=== PATIENT | female | born 1950 | race Caucasian/White ===

== ENCOUNTER 2024-09-08 01:07 | Emergency (ER) | payer MEDICARE, SELFPAY ==
[2024-09-08 01:53] VITALS: BP 124/68; PULSE 80; RESP 18; TEMP 38.2; O2SAT 97; BMI 40.3
--- NOTE | 2024-09-08 02:07 | EKG_ITS ---
[facility] Test Date: 2024-09-08 Pat Name: LONNIE GARZA Department: Room: - Gender: Female Professional Builder: : 1950 Requested By: Maikel Eaton ([facility]) Order Number: [id number] Reading MD: Maikel Eaton ([facility]) Measurements Intervals [place] Rate: 69 P: 38 RI: 199 QRS: -30 QRSD: 110 T: -1 QT: 376 QTc: 405 Interpretive Statements SINUS RHYTHM WITH OCCASIONAL SUPRAVENTRICULAR PREMATURE COMPLEXES BORDERLINE LEFT AXIS DEVIATION [QRS AXIS < -20] LOW QRS VOLTAGE IN PRECORDIAL LEADS [QRS DEFLECTION < 1.0 mV IN CHEST LEADS] PATTERN CONSISTENT WITH PULMONARY DISEASE No previous ECG available for comparison /store/S0/[id number]/ecg/[id number].pdf
--- NOTE | 2024-09-08 02:07 | XR_ITS ---
Examination: CT brain head without contrast. 2-D sagittal coronal reconstructions Date and time of exam:September 08, 2024 0231 hrs. Indications: Patient fell 2 hours ago with injury to the head, head pain CTDI: vol (mGy):49.30 DLP: (mGycm):1009 Technique: Multiple CT axial sections of the brain have been obtained, 5 mm slice thickness. Contrast has not been administered. 2-D sagittal, coronal reconstructions have been obtained Low dose protocols were performed. One or more of the following dose reduction techniques were used; automated exposure control, adjustment of the mA and/or KV according to patient size, use of iterative reconstruction technique. Findings: No significant ventricular enlargement. Intra-axial or extra-axial hemorrhage density is not seen. No mass effect or midline shift Basal cisterns are not remarkable. Fourth ventricle is midline. Posterior craniotomy defects Impression: Negative for acute hemorrhage, mass effect or midline shift
--- NOTE | 2024-09-08 02:07 | XR_ITS ---
Examination: CT cervical spine without contrast 2-D sagittal reconstructions 2-D coronal reconstructions 3-D reconstructions. Exam date and time:September 08, 2024 at 0233 hrs. Comparison January 05, 2018 Indications: Patient fell 2 hours ago with injury to the neck, neck pain CTDI:vol (mGy) 13.96 DLP: (mGycm) 346 Technique: Multiple 2 mm axial sections of the cervical spine have been obtained. The coronal and sagittal reconstructions have been obtained. 3-D reconstructions have been obtained. Low dose protocols were performed. One or more of the following dose reduction techniques were used; automated exposure control, adjustment of the mA and/or KV according to patient size, use of iterative reconstruction technique. Findings: Axial sections demonstrate intact base of the skull. C1 exhibit satisfactory relationship to the odontoid. No acute cervical vertebral body fracture seen. Alignment posterior spinous processes satisfactory. Impression: No acute cervical fracture.
--- NOTE | 2024-09-08 02:07 | XR_ITS ---
Examination: AP lateral chest 2 views Technique: Sitting AP lateral chest 2 views Exam date and time: September 08, 2024 0225 hrs. Indications: Onset chest pain today Findings: This film does not include the upper lungs Mild prominence left ventricle Mild vascular congestion No lobar pneumonia or pulmonary edema Kyphosis dorsal spine with prominent osteopenia Impression: Limited study with no pneumonia or pulmonary edema, no pneumothorax
--- NOTE | 2024-09-08 02:08 | PD.EDRME ---
Rapid Medical Screening Exam RME Arrival date/time: 09/08/24 01:07 73-year-old female presents emergency department complaining of generalized pain after suffering fall while attempting to get up from the toilet. Patient reports did hit her head and is complaining of neck pain. Chief Complaint: Back Pain/Injury Time Seen by Provider: 09/08/24 01:12 Vital signs: Vital Signs Temperature 100.7 F H 09/08/24 01:53 Pulse Rate 80 09/08/24 01:53 Respiratory Rate 18 09/08/24 01:53 Blood Pressure 124/68 09/08/24 01:53 Pulse Oximetry (%) 97 09/08/24 01:53 Oxygen Delivery Method Room Air 09/08/24 01:53 Vital signs reviewed by provider: Yes
[2024-09-08] MEDS: ACETAMINOPHEN 500 MG TABLET 1000 MG PO (03:04)
[2024-09-08 03:32] LABS: Basophils % (Auto) 1 % (0-2.5); Eosinophils % (Auto) 1 % (0-10); Hematocrit 36.7 % (36.0-46.0); Hemoglobin 12.4 g/dL (12.0-16.0); Immature Granulocytes % (Auto) 0 % (0-0); Immature Granulocytes Auto 0.01 Thou/mm3 (0.00-0.00); Lymphocytes % (Auto) 14 % (10-50); Mean Corpuscular HGB Conc 33.8 g/dl (31.0-37.0); Mean Corpuscular Hemoglobin 31.6 pg (25.0-35.0); Mean Corpuscular Volume 93 fL (80-100); Monocytes # (Auto) 0.5 Thou/mm3 (0.0-0.8); Monocytes % (Auto) 7 % (0-12); Neutrophils # (Auto) 5.4 Thou/mm3 (1.8-7.7); Neutrophils % (Auto) 78 % (37-80); Nucleated Red Blood Cell % 0 /100 WBC (0); Platelet Count 157 Thou/mm3 (140-440); RDW Standard Deviation 49.1 fL (36.4-46.3); Red Blood Count 3.93 Miln/mm3 (4.00-5.20)
--- NOTE | 2024-09-08 03:46 | PRELIM_ITS ---
CT scan of the head without intravenous contrast (axial sections with sagittal and coronal reformats) September 08, 2024 0231 hoursClinical History: FallCompared with the prior study dated January 05, 2018 .Findings:There is no evidence of intracranial hemorrhage, mass effect or midline shift. There are b ilateral parietal craniotomy with underlying encephalomalacic changes. A prominent cisterna magna is incidentally noted. There are periventricular white matter hypodensities, compatible with chronic sma ll vessel ischemia. There is mild volume loss. There is mild mucosal thickening in bilateral maxillar y sinuses. The mastoid air cells and other visualized paranasal sinuses are clear.Impression:No evide nce of intracranial hemorrhage, midline shift or calvarial fracture. Other findings as described william ford. Report Electronically Signed By: Mark Solis 09/08/2024 3:46:11 AM [EST]
[2024-09-08 03:47] LABS: Partial Thromboplastin Time 28.2 Seconds (22.0-36.0); Prothrombin Time 11.4 Seconds (9.0-12.2)
[2024-09-08 03:49] LABS: B-Type Natriuretic Peptide 216 pg/mL (0-100)
[2024-09-08 03:50] LABS: Alanine Aminotransferase 62 U/L (10-49); Albumin, Serum 4.3 gm/dL (3.4-4.8); Albumin/Globulin Ratio 1.2 (1.2-2.2); Alkaline Phosphatase 303 U/L (46-116); Anion Gap 5 (7-16); Aspartate Amino Transferase 67 U/L (0-34); BUN/Creatinine Ratio 18 Ratio (12-20); Bilirubin,Total 0.5 mg/dL (0.3-1.2); Blood Urea Nitrogen 16 mg/dL (9-23); Calcium 9.6 mg/dL (8.3-10.6); Calcium (Corrected) 9.6 mg/dL (8.5-10.1); Chloride 100 mMol/L (98-107); Creatinine (Component) 0.9 mg/dL (0.6-1.3); Estimated Creatinine Clearance 70.1 mL/min (>60); Globulin 3.5 gm/dL (2.3-3.5); Glucose 115 mg/dL (74-106); Magnesium 2.1 mg/dL (1.6-2.6); Osmolality,Calculated 268 (275-295); Potassium 4.7 mMol/L (3.4-5.1); Sodium 133 mMol/L (136-145); Total Protein 7.8 gm/dL (5.7-8.2); Troponin I < 0.020 ng/mL (0.0-0.045); eGFR > 60 See Note
--- NOTE | 2024-09-08 04:10 | PRELIM_ITS ---
CT scan of the cervical spine without intravenous contrast (axial sections with sagittal and coronal reformats) September 08, 2024 0233 hours Clinical History: Fall Comparison: No prior study is availabl e for comparison. Findings:The bones are osteopenic. There is no fracture or traumatic subluxation. D egenerative changes are noted in the form of multilevel marginal osteophytes, decreased disc spaces a nd facet arthropathy. There are nodules in the right lobe of the thyroid.Impression:No evidence of fr acture or traumatic subluxation.Degenerative changes as described above. Report Electronically Breann d By: Mark Solis 09/08/2024 4:09:57 AM [EST]
[2024-09-08 05:52] VITALS: BP 112/58; PULSE 60; RESP 16; TEMP 37.7; O2SAT 95
[2024-09-08 05:56] LABS: Collection Type, Urine Clean Catch
[2024-09-08 06:16] LABS: Bacteria,Urine 4+; Bilirubin,Urine Negative (Negative); Blood,Urine Negative (Negative); Budding Yeast,Urine Present; Clarity,Urine Turbid (Clear/Hazy); Color,Urine Yellow (Lt Yel-Yel); Glucose, Urine Negative (Negative); Ketones,Urine Negative (Negative); Leukocyte Esterase,Urine Positive (Negative); Nitrite,Urine Positive (Negative); Protein,Urine Negative (Neg - Trace); RBC,Urine 1 /hpf (0-3); Specific Gravity,Urine 1.014 (1.001-1.035); Squamous Epithelial Cell,Urine 1 /hpf (0-5); Urobilinogen,Urine Negative mg/dL (0.0-1.0); WBC,Urine 60 /hpf (0-5)
[2024-09-08 06:23] LABS: Culture Indicated,Urine Yes
--- NOTE | 2024-09-08 06:31 | XR_ITS ---
Examination: Lumbar spine 3 views Technique one AP lateral coned lateral lower lumbar spine 3 views Exam date and time: September 08, 2024 0702 hours INDICATIONS: Ground-level fall today with injury to the lower back, lower back pain. FINDINGS: Severe osteopenia No acute lumbar fracture Mild diffuse lumbar disc narrowing IMPRESSION: No acute lumbar fracture
--- NOTE | 2024-09-08 06:39 | EDNOTE_ITS ---
ED Back Injury Pain RME/HPI General Chief Complaint: Back Pain/Injury Stated Complaint: BACK PAIN Time Seen by Provider: 09/08/24 01:12 Arrival date/time: 09/08/24 01:07 RME / HPI RME / HPI Narrative: 09/08/24 01:07 73-year-old female presents emergency department complaining of generalized pain after suffering fall while attempting to get up from the toilet. Patient reports did hit her head and is complaining of neck pain. DR. ALICEA MAIN ED EVALUATION 73 year old female with history of chronic knee and back pain presents to the ED BIBA from home for complaint of back pain after ground level fall today. Patient reports her knees give out frequently. This morning while getting up off the toilet states her knees gave out and fell on the side of the toilet onto her right hip causing mid back pain. States the pain in her mid back is chronic however exacerbated today. Reports blunt trauma to her back, no head injury. No other injuries or complaints reported. Related Data Home Medications ?Medication ?Instructions ?Recorded ?Confirmed biotin 10,000 mcg capsule (Julien 10,000 mcg PO DAILY 01/05/18 01/05/18 Biotin) calcium carbonate (Calcium 600) 600 mg PO DAILY 01/05/18 01/05/18 cyanocobalamin (B12)-cobamamide 100 mcg DAILY 01/05/18 01/05/18 5,000 mcg-100 mcg sublingual tablet (B-12 Plus) diazepam 10 mg tablet (Valium) 10 mg TID 01/05/18 01/05/18 diphenhydramine HCl 25 mg tablet 25 mg PO Q4H PRN Cough 01/05/18 01/05/18 gabapentin 400 mg capsule 400 mg PO TID 01/05/18 01/05/18 levothyroxine 88 mcg tablet 88 mcg PO QDAY 01/05/18 01/05/18 naproxen 500 mg tablet (Naprosyn) 500 mg PO BID 01/05/18 01/05/18 omega 9-fpy-rcg-fish oil 1,000 mg 600 mg DAILY 01/05/18 01/05/18 (120 mg-180 mg) capsule (Fish Oil) oxycodone-acetaminophen 10 mg-325 10 mg PO [id number] PRN Pain, Moderate 01/05/18 01/05/18 mg tablet (Percocet) ranitidine HCl 150 mg tablet 150 mg PO QPM 01/05/18 01/05/18 sertraline 100 mg tablet 100 mg PO QDAY 01/05/18 01/05/18 terbutaline 5 mg tablet 5 mg PO TID 01/05/18 01/05/18 Previous Rx's ?Medication ?Instructions ?Recorded levofloxacin 500 mg tablet 500 mg PO QDAY #7 tabs 09/08/24 Allergies Allergy/AdvReac Type Severity Reaction Status Date / Time bee venom protein (honey bee) Allergy Verified 01/05/18 11:54 [place] And Derivatives Allergy Verified 01/05/18 11:54 cortisone Allergy Verified 01/05/18 11:52 dexamethasone [From Decadron] Allergy Verified 01/05/18 11:52 erythromycin base Allergy Verified 01/05/18 11:54 hydrocodone [From Vicodin] Allergy Verified 01/05/18 11:52 morphine Allergy Verified 01/05/18 11:54 NSAIDS (Non-Steroidal Allergy Verified 01/05/18 11:52 Anti-Inflamma peas Allergy Verified 01/05/18 11:54 Penicillins Allergy Verified 01/05/18 11:52 Pork/Porcine Containing Allergy Verified 01/05/18 11:54 Products Sulfa (Sulfonamide Allergy Verified 01/05/18 11:54 Antibiotics) tetanus toxoid, adsorbed Allergy Verified 01/05/18 11:54 Review of Systems Review of Systems Narrative Review of Systems: Gen: No fever, no chills, no weight loss EYES: No discharge, no visual changes, no pain HEENT: No ear pain, no congestion, no sore throat PULM: no shortness of breath, no cough, no congestion CV: No chest pain, no dyspnea on exertion, no palpitations, no chest tightness GI: No nausea, no vomiting, no diarrhea, no pain, no constipation : No frequency, no urgency,? no dysuria Musc/skel: No joint pain, + back pain Skin: No rash, no ecchymosis, no lesions Psyc: No hallucinations, no depression Heme/Lymph: No easy bleeding or bruising tendencies Neuro: No weakness, no headache Past Medical History Past Medical History CARDIAC: Positive Cardiac Disorders and Edema RESPIRATORY: Positive Asthma REPRODUCTIVE: Positive Previous Pregnancies MUSCULOSKELETAL: Positive Carpal Tunnel Syndrome (BILAT) ENDOCRINE: Positive Hypothyroidism HEMATOLOGIC: Positive Clotting Problems (DVT RT LEG, PE AND RT VENTRICLE) PSYCHO/SOCIAL: Positive Depression and Anxiety Surgical History SURGICAL: Positive Endocrine Surgery, Thyroidectomy, Abdominal Surgery, Gastric Bypass Surgery, Neurologic Surgery (BRAIN TUMOR), Hysterectomy (AND OOPHERECTOMY) and Section (X2) OTHER SURGICAL HX: gastirc by pass Social History SMOKING STATUS: Never smoker ED Exam Narrative Physical exam: GENERAL APPEARANCE: AxOx4, mild distress, nontoxic appearing HEENT: NC, AT. MMM. EOMI, clear conjunctiva, oropharynx clear. NECK: Supple without lymphadenopathy. No stiffness or restricted ROM. HEART: Normal rate and regular rhythm, normal S1/S1, no m/r/g LUNGS: CTAB, moving air well. No crackles or wheezes are heard. ABDOMEN: Soft, nontender, nondistended with good bowel sounds heard. BACK: No midline C/T/L spine pain or deformity, No CVAT, no obvious deformity. EXTREMITIES: Bilateral lower extremities with significant lymphadema. Without cyanosis or clubbing. MUSCULOSKELETAL: Mild paraspinal tenderness to the L3-L4 area. FROM of all major joints, no chest tenderness NEUROLOGICAL: Grossly nonfocal. Alert and oriented, moving all 4 extremities. CN not formally tested but appear grossly intact. Skin: Warm and dry without any rash. Course Quality Measures none Orders Category Date Time Status Bedside COVID-19 Antigen Test NOW Care 09/08/24 02:09 Active Bedside Influenza A&B Antigen Test NOW Care 09/08/24 02:09 Completed EKG (ED ONLY) *Do not use* NOW Care 09/08/24 02:[address] cervical spine wo con Stat Exams 09/08/24 02:[address] head/brain wo con Stat Exams 09/08/24 02:07 Completed EKG (ED Only) Stat Exams 09/08/24 02:07 Ordered XR chest 2V Stat Exams 09/08/24 02:07 Completed XR lumbar spine 2-3V Stat Exams 09/08/24 06:31 Completed B-Type Natriuretic Peptide Stat Lab 09/08/24 03:08 Completed CBC Stat Lab 09/08/24 03:08 Completed Comprehensive Metabolic Panel Stat Lab 09/08/24 03:08 Completed Drug Screen,Urine Stat Lab 09/08/24 05:30 Completed Magnesium Stat Lab 09/08/24 03:08 Completed Partial Thromboplastin Time Stat Lab 09/08/24 03:08 Completed Prothrombin Time with INR Stat Lab 09/08/24 03:08 Completed Troponin I Stat Lab 09/08/24 03:08 Completed Urinalysis, C/S if Indicated Stat Lab 09/08/24 05:30 Completed Urine Culture Stat Lab 09/08/24 05:30 Received Acetaminophen Tab [Tylenol ES Tab] Med 09/08/24 02:09 Discontinued 1,000 mg PO X1 ONE oxyCODONE/APAP 5/325 [Percocet 5/325] Med 09/08/24 06:31 Discontinued 2 tab PO X1 ONE Reevaluation(s) Reevaluation #1: Patient remains clinically stable throughout the emergency department visit. We reviewed all the results, analysis, and treatment plans. Patient is amenable to discharge. Antibiotic was switched from Macrobid to Levaquin. Strict return precautions were outlined. Patient was discharged in stable condition. Time: 09:20 Vital Signs Vital signs: Vital Signs Temperature 100.7 F H 09/08/24 01:53 Pulse Rate 80 09/08/24 01:53 Respiratory Rate 18 09/08/24 01:53 Blood Pressure 124/68 09/08/24 01:53 Pulse Oximetry (%) 97 09/08/24 01:53 Oxygen Delivery Method Room Air 09/08/24 01:53 Pulse ox is 97% on room air which is adequate. Back Pain / Injury MDM Narrative MDM Narrative:: Reena Coronado am scribing for and in the presence of Dr. Alicea. Patient data External records reviewed:: [facility] previous records (I reviewed ED visit on 01/05/2018 ) and EMS form Clinical information provided by:: patient and EMS Social determinants that could affect healthcare access:: none Patient has the following chronic illnesses:: Chronic pain How is presenting disease/condition affected by chronic disease/condition?: exacerbated by Evaluation data The following diagnostics were reviewed and interpreted by me:: lab results, radiology exam(s) and EKG tracing(s) Lab and/or radiology exams considered but not ordered:: None Interpretation Summary: Ordering Physician: Date of Service: Procedure(s): Accession Number(s): cc: ~ CT scan of the head without intravenous contrast (axial sections with sagittal and coronal reformats) September 08, 2024 0231 hours Clinical History: Fall Compared with the prior study dated January 05, 2018. Findings: There is no evidence of intracranial hemorrhage, mass effect or midline shift. There are bilateral parietal craniotomy with underlying encephalomalacic changes. A prominent cisterna magna is incidentally noted. There are periventricular white matter hypodensities, compatible with chronic small vessel ischemia. There is mild volume loss. There is mild mucosal thickening in bilateral maxillary sinuses. The mastoid air cells and other visualized paranasal sinuses are clear. Impression: No evidence of intracranial hemorrhage, midline shift or calvarial fracture. Other findings as described above. Report Electronically Signed By: Mark Solis 09/08/2024 3:46:11 AM [EST] Ordering Physician: Date of Service: Procedure(s): Accession Number(s): cc: ~ CT scan of the cervical spine without intravenous contrast (axial sections with sagittal and coronal reformats) September 08, 2024 0233 hours Clinical History: Fall Comparison: No prior study is available for comparison. Findings: The bones are osteopenic. There is no fracture or traumatic subluxation. Degenerative changes are noted in the form of multilevel marginal osteophytes, decreased disc spaces and facet arthropathy. There are nodules in the right lobe of the thyroid. Impression: No evidence of fracture or traumatic subluxation. Degenerative changes as described above. Report Electronically Signed By: Mark Solis 09/08/2024 4:09:57 AM [EST] Ordering Physician: Karon MARCOS)Maikel Date of Service: 09/08/24 Procedure(s): XR chest 2V Accession Number(s): [id number] cc: Pablo Jerome MD; Fabian Trinidad MD; Karon EspinosaFIBERGLASS ROVING WINDER)Maikel~ Examination: AP lateral chest 2 views Technique: Sitting AP lateral chest 2 views Exam date and time: September 08, 2024 0225 hrs. Indications: Onset chest pain today Findings: This film does not include the upper lungs Mild prominence left ventricle Mild vascular congestion No lobar pneumonia or pulmonary edema Kyphosis dorsal spine with prominent osteopenia Impression: Limited study with no pneumonia or pulmonary edema, no pneumothorax Dictated By:Fabian Trinidad MD Signed By:<Electronically signed by Fabian Trinidad MD in OV> 09/08/24 0734 Ordering Physician: Dontae Alicea MD Date of Service: 09/08/24 Procedure(s): XR lumbar spine 2-3V Accession Number(s): [id number] cc: Pablo Jerome MD; Dontae Alicea MD; Fabian Trinidad MD~ Examination: Lumbar spine 3 views Technique one AP lateral coned lateral lower lumbar spine 3 views Exam date and time: September 08, 2024 0702 hours INDICATIONS: Ground-level fall today with injury to the lower back, lower back pain. FINDINGS: Severe osteopenia No acute lumbar fracture Mild diffuse lumbar disc narrowing IMPRESSION: No acute lumbar fracture Dictated By:Fabian Trinidad MD Signed By:<Electronically signed by Fabian Trinidad MD in [place]>09/08/24 0900 Medications / Prescriptions Medications or Prescriptions considered but not ordered:: None Medication administrations:: Medication Administration History Discontinued Medications Acetaminophen (Acetaminophen 500 Mg Tablet) 1,000 mg PO X1 ONE Stop: 09/08/24 02:10 Last Admin: 09/08/24 03:04 Dose: 1,000 mg Documented By: MORA Comments: PT STATES PAIN IS 10. PT IS RELAXED ON PHONE PLAYING GAMES Oxycodone/Acetaminophen (Oxycodone/Apap 5/325 Tablet) 2 tab PO X1 ONE Stop: 09/08/24 06:32 Last Admin: 09/08/24 06:45 Dose: 2 tab Documented By: DB See above Consultations Consultation(s) initiated? (list below): No Diagnosis Most likely diagnosis given after review of the tests above:: Strain of lumbar region Acute UTI Admission Indicated Admission indicated?: not indicated Admission Request Was there a request for admission?: No Disposition Plan Disposition Plan: Discharge Discharge Attestation Discharge Attestation: The patient and all family members were given an opportunity to ask questions and understood the discharge instructions. Discharge instructions specifically effects, indications for sooner follow up or return to the emergency department, and the expected course of current diagnosis. Patient condition: Stable Discharge Plan Plan Patient Disposition: HOME (Self Care) Prescriptions/Referrals Prescriptions/Med Rec: New levofloxacin 500 mg tablet 500 mg PO QDAY Qty: 7 0RF No Action gabapentin 400 mg Capsule 400 mg PO TID sertraline 100 mg Tablet 100 mg PO QDAY levothyroxine 88 mcg Tablet 88 mcg PO QDAY oxycodone-acetaminophen [Percocet] 10-325 mg Tablet 10 mg PO [id number] PRN (Reason: Pain, Moderate) terbutaline 5 mg Tablet 5 mg PO TID ranitidine HCl 150 mg Tablet 150 mg PO QPM diazepam [Valium] 10 mg Tablet 10 mg TID naproxen [Naprosyn] 500 mg Tablet 500 mg PO BID omega 8-bij-jdf-fish oil [Fish Oil] 1,000 mg (120 mg-180 mg) Capsule 600 mg DAILY calcium carbonate [Calcium 600] 600 mg calcium (1,500 mg) Tablet 600 mg PO DAILY biotin [Julien Biotin] 10,000 mcg Capsule 10,000 mcg PO DAILY diphenhydramine HCl 25 mg Tablet 25 mg PO Q4H PRN (Reason: Cough) cyanocobalamin-cobamamide [B-12 Plus] 5,000-100 mcg Tablet, Sublingual 100 mcg DAILY Referrals: Pablo Jerome MD [Primary Care Provider] - In 1 week Problem List Clinical Impression: Strain of lumbar region, Acute UTI Patient/Caregiver Discharge Instructions Education Materials: ED CYSTITIS Female Adult Additional Instructions: You can stop your current antibiotic. A new antibiotic has been sent to the pharmacy for you. You can continue with your normal home pain medication regimen. Follow-up with your primary care doctor in 2 to 3 days for recheck. You can return to the emergency department sooner if symptoms worsen or if you notice any new, concerning issues. Print Language: Divehi Stand Alone Forms: Rosette Award Info., Patient Portal Info Letter
[2024-09-08] MEDS: oxyCODONE/APAP 5/325 TABLET 2 TAB PO (06:45)
[2024-09-08 07:21] LABS: Amphetamine/Methamp Scrn,U Negative (Negative); Barbiturate Screen,Urine Negative (Negative); Benzodiazepines Screen,Urine Positive (Negative); Benzoylecgonine Screen, Ur Negative (Negative); Fentanyl Screen,Urine Negative (Negative); Opiate Screen,Urine Negative (Negative); THC Screen,Urine Negative (Negative)
[2024-09-08 07:45] VITALS: BP 108/44; PULSE 68; RESP 18; TEMP 37.1; O2SAT 95
[2024-09-08 10:35] VITALS: BP 110/48; PULSE 61; RESP 19; TEMP 37; O2SAT 95
== END 2024-09-08 11:00 | disposition home or self-care (01) ==
PROVIDERS: Emergency Provider Emergency Medicine; PCP Emergency Medicine
DX: S39.012A Strain of muscle, fascia and tendon of lower back, initial encounter (principal); S09.90XA Unspecified injury of head, initial encounter; S19.9XXA Unspecified injury of neck, initial encounter; R07.9 Chest pain, unspecified; N39.0 Urinary tract infection, site not specified; M47.816 Spondylosis without myelopathy or radiculopathy, lumbar region; W18.30XA Fall on same level, unspecified, initial encounter; I49.1 Atrial premature depolarization
CPT/HCPCS: 36415; 70450; 71046; 72100; 72125; 80053; 80307; 81001; 83735; 83880; 84484; 85025; 85610; 85730; 87077; 87086; 87186; 87400; 87811; 93005; 99284; A9270